=== PATIENT | male | born 1970 | race African-American/Black ===

== ENCOUNTER 2017-10-25 07:31 | Emergency (ER) | payer OTHER ==
[~2017-10-25] VITALS: Ht 175.3 cm; Wt 93.0 kg
[2017-10-25 08:04] LABS: ABSOLUTE EOSINOPHILS 0.3 thou/uL (0.0-0.7); ABSOLUTE LYMPHOCYTES 2.4 thou/uL (0.8-5.3); ABSOLUTE MONOCYTES 0.4 thou/uL (0.0-1.2); ABSOLUTE NEUTROPHILS 3.9 thou/uL (1.6-8.1); BASOPHILS 0.5 %; EOSINOPHILS 4.4 %; HEMATOCRIT 44.6 % (42.0-52.0); HEMOGLOBIN 15.5 gm/dL (14.0-18.0); LYMPHOCYTES 34.5 %; MCH 31.8 pg (26.0-34.0); MCHC 34.9 g/dL (28.0-37.0); MCV 91.2 fL (80.0-100.0); MONOCYTES 5.9 %; MPV 7.2 fl. (7.2-11.1); NUCLEATED RBCS 0 /100WBC; PLATELET COUNT* 247 thou/uL (150-400); POLYS 54.7 %; RBC 4.88 mil/uL (4.50-6.00); WBC 7.1 thou/uL (4.0-11.0)
[2017-10-25 08:19] LABS: APTT 27.6 Seconds (25.0-31.3); PROTIME 10.1 Seconds (9.20-11.50)
[2017-10-25 08:27] LABS: ANION GAP 9 mmol/L (7-16); BUN 14 mg/dL (7-18); CALCIUM 9.3 mg/dL (8.5-10.1); CHLORIDE 104 mmol/L (98-107); CO2 28 mmol/L (21-32); GLUCOSE 130 mg/dL (70-99); POTASSIUM 3.7 mmol/L (3.5-5.1); SODIUM 141 mmol/L (136-145)
[2017-10-25 08:44] LABS: ALBUMIN 3.5 g/dL (3.4-5.0); ALKALINE PHOSPHATASE 147 U/L (46-116); CK-MB MASS < 0.5 ng/mL (<0.5-3.6); LIPASE 141 U/L (73-393); MAGNESIUM 2.1 mg/dL (1.8-2.4); NT-PRO BRAIN NAT PEPTIDE 27 pg/mL (<300); SGOT 22 U/L (15-37); SGPT 50 U/L (30-65); TOTAL BILIRUBIN 0.4 mg/dL (<0.1-1.0); TROPONIN-I LEVEL <0.06 ng/mL (<0.06)
[2017-10-25] MEDS ORDERED: ACIPHEX 20 MG T20 MG PO (10:32)
[2017-10-25 11:57] VITALS: BP 152/101
--- NOTE | 2017-10-26 13:02 | EKG ---
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: Apryl COFFEY : 1970 Requested By: Phil Shahid Order Number: [id number] MD: Pawel Lim Measurements Intervals [place] Rate: 100 P: 50 FL: 151 QRS: 7 QRSD: 90 T: -10 QT: 340 QTc: 439 Interpretive Statements Sinus tachycardia Probable left atrial enlargement Borderline T abnormalities, inferior leads No previous ECG available for comparison Electronically Signed On 10-26-2017 13:02:25 CDT by Pawel Lim [email or web address] <ELECTRONICALLY SIGNED> By: Vince Lim MD, [facility] 10/26/17 1302 0 0 Vince Lim MD, FACC /EPI
== END 2017-10-25 11:58 | disposition home or self-care (01) ==
LOC: M.ERS 07:31
PROVIDERS: Emergency Medicine
DX: K80.50 Calculus of bile duct without cholangitis or cholecystitis without obstruction (principal); K21.9 Gastro-esophageal reflux disease without esophagitis